=== PATIENT | female | born 1970 | race Caucasian/White ===

== ENCOUNTER 2016-06-15 05:33 | Day surgery (SDC) | payer OTHER ==
[2016-06-14 10:46] VITALS: BMI 19.6
[2016-06-15] VITALS (9 sets, daily range): BP systolic 90–114; BP diastolic 45–75; PULSE 58–83; RESP 12–22; Ht 154.9 cm; Wt 49.7 kg
[~2016-06-15] VITALS: Ht 154.9 cm; Wt 49.7 kg
[~2016-06-15 05:33] MED LIST: AMIT25TA9 PO; CIPR500T4 PO
[2016-06-15] MEDS ORDERED: LACTATED RINGER'S 1,000 ML IV* SCH (06:00)
[2016-06-15] MEDS ORDERED: STRONG IODINE 14 ML SOLUTION TOP ONE (06:50)
--- NOTE | 2016-06-15 07:49 | HPN ---
Date/Time of Note Date/Time of Note DATE: 06/15/16 TIME: 07:49 Interval H&P Admission Note Pt. seen H&P reviewed: No system changes JOE SCHILLING MD June 15, 2016 07:49
[2016-06-15] MEDS ORDERED: FENTAnyl 50 MCG/ML VIAL ONE (07:53)
[2016-06-15] MEDS ORDERED: MIDAZOLAM 1 MG/ML 2 ML INJ ONE (07:54)
[2016-06-15] MEDS ORDERED: DIPHENHYDRAMINE 50 MG INJ ONE (08:15)
[2016-06-15] MEDS ORDERED: DIPHENHYDRAMINE 50 MG INJ IV PRN (08:30)
[2016-06-15] MEDS ORDERED: FENTAnyl 50 MCG/ML VIAL IV PRN (08:30)
[2016-06-15] MEDS ORDERED: MEPERIDINE 25 MG INJ IV PRN (08:30)
[2016-06-15] MEDS ORDERED: METOCLOPRAMIDE 10 MG INJ IV PRN (08:30)
[2016-06-15] MEDS ORDERED: ONDANSETRON 4 MG INJ IV PRN (08:30)
[2016-06-15] MEDS ORDERED: HYDROmorphONE (0.2 MG/ML) 10ML SYG IV PRN ×2 (08:30)
[2016-06-15] MEDS ORDERED: PROPOFOL 20 ML ONE (08:44)
[2016-06-15] MEDS ORDERED: LIDOCAINE 100 MG SYRINGE ONE (08:44)
[2016-06-15] MEDS ORDERED: ONDANSETRON 4 MG INJ ONE (08:45)
--- NOTE | 2016-06-15 09:04 | PD.PPDC ---
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
--- NOTE | 2016-06-15 10:13 | OPR ---
DATE OF OPERATION: 06/15/2016 PREOPERATIVE DIAGNOSIS: Cervical intraepithelial neoplasia. POSTOPERATIVE DIAGNOSIS: See pathological report. OPERATION PERFORMED: Cold conization of the cervix and ECC. SURGEON: Gale Reardon MD ANESTHESIA: General. ANESTHESIOLOGIST: Arvin Mark MD ESTIMATED BLOOD LOSS: Approximately 30 mL. PROCEDURE: Under appropriate induction of general anesthesia, the patient was placed in dorsal lith otomy position. Perineal area and vagina wall were prepped and draped in usual aseptic manner. Shawn ghted speculum introduced and cervix was red, hypertrophic and the little lower lip has ectropion. Anterior lip of cervix was grasped and #1 chromic suture was placed on each side at 3 o'clock and 9 o'clock for hemostatic and traction purposes. Then, Lugol solution applied on the cervical surface. The lower portion has a Schiller positive area. A circular incision was made from the lower lip t o upper and conization of cervix was done. The cone of the cervix was removed en bloc. Then, ECC w as done, which was scanty tissue sent to pathology. Lower lip was inverted by putting a Sturmdorf s uture using #1 chromic catgut. The same thing on the upper lip and also inverted by using Sturmdorf suture. A piece of Surgicel was inserted in the defect and no further bleeding noted. The procedu re was completed. All the sutures were cut. The patient was sent to recovery room in stable condit ion. Dictated By: GALE TORRES/BARRETT Conf#: [id number] DID#: [id number]
== END 2016-06-15 11:00 | disposition home or self-care (01) ==
LOC: SDS 05:33
PROVIDERS: ATTEND Obstetrics & Gynecology
DX: N72 Inflammatory disease of cervix uteri (principal)
CPT/HCPCS: 57520; J1170; J1200; J2001; J2250; J2405; J3010